=== PATIENT | female | born 1980 | race Caucasian/White ===

== ENCOUNTER → 2018-01-05 | Emergency (ER) | payer OTHER ==
[~2018-01-05] VITALS: Ht 157.5 cm; Wt 56.7 kg
[~2018-01-05] MED LIST: CYMBALTA20 MG; TOPROL XL25 MG
== END | disposition left against medical advice (07) ==
LOC: ER 18:43
DX: M54.5 Low back pain (principal); R10.2 Pelvic and perineal pain